=== PATIENT | female | born 1960 | race Caucasian/White ===

== ENCOUNTER 2018-06-16 10:23 | Emergency (ER) | payer OTHER ==
[2018-06-16] MEDS: Aspirin 81 MG Tab.Chew PO ONE (10:50)
--- NOTE | 2018-06-16 10:50 | EDM.PDOC ---
ED HPI GENERAL MEDICAL PROBLEM - General Chief Complaint: Chest Pain Time Seen by Provider: 06/16/18 10:32 Source of Information: Reports: Patient History Limitations: Reports: No Limitations - History of Present Illness INITIAL COMMENTS - FREE TEXT/NARRATIVE: Patient brought from [facility] with chest pain and hypotension. Patient here in ER now is asymptomatic and feeling fine but she tells me that around [id number] this morning she felt hot, sweaty and lightheaded. She went to work and around [id number] she felt heavy in her chest. It lasted about a minute. She waited to get in to the clinic and while she was there she felt the heaviness again for about a minute along with heart racing. She got an EKG at the clinic that showed tachycardia and ST depression. Blood pressure was 82/50 in clinic. BP was improving en route per ambulance. Patient denies any pain in chest, neck, jaw, arms or shoulder currently. IV fluids and aspirin were given on arrival. Patient smokes 1 ppd, has diabetes, high cholesterol and high blood pressure. She tells us that both her mother and sister of massive heart attacks at an early age, sister was in her 40's. - Related Data Allergies Allergy/AdvReac Type Severity Reaction Status Date / Time No Known Allergies Allergy Verified 06/16/18 10:29 Home Meds: Home Meds Liraglutide [Victoza 3-Mikel] 0.6 mg SUBCUT DAILY 06/16/18 [History] Lisinopril [Zestril] 40 mg PO DAILY 06/16/18 [History] Metoprolol Tartrate [Lopressor] 12.5 mg PO BID 06/16/18 [History] atorvaSTATin [Lipitor] 10 mg PO DAILY 06/16/18 [History] metFORMIN [Glucophage] 1,000 mg PO BIDMEALS 06/16/18 [History] ED ROS GENERAL - Review of Systems Review Of Systems: See Below Constitutional: Reports: Malaise. Denies: Fever, Chills, Weakness HEENT: Denies: Ear Pain, Throat Pain, Vision Change Respiratory: Denies: Shortness of Breath, Cough Cardiovascular: Reports: Chest Pain, Blood Pressure Problem, Lightheadedness. Denies: Syncope GI/Abdominal: Denies: Abdominal Pain, Nausea, Vomiting : Reports: No Symptoms Musculoskeletal: Denies: Neck Pain, Shoulder Pain, Arm Pain, Back Pain, Hand Pain, Leg Pain, Foot Pain Skin: Reports: Diaphoresis (resolved now). Denies: Cyanosis, Jaundice, Mottled , Pallor Neurological: Denies: Confusion, Dizziness, Headache, Seizure, Syncope, Difficulty Walking, Weakness, Change in Speech Psychiatric: Denies: Agitation, Anxiety, Confusion ED EXAM, GENERAL - Physical Exam Exam: See Below Exam Limited By: No Limitations General Appearance: Alert, WD/WN, No Apparent Distress Eye Exam: Bilateral Eye: EOMI, Normal Inspection, PERRL Ears: Normal External Exam, Hearing Grossly Normal Nose: Normal Inspection, No Blood Throat/Mouth: Normal Inspection, Normal Lips, Normal Voice, No Airway Compromise Head: Atraumatic, Normocephalic Neck: Normal Inspection, Full Range of Motion Respiratory/Chest: No Respiratory Distress, Lungs Clear, Normal Breath Sounds, No Accessory Muscle Use Cardiovascular: Regular Rate, Rhythm, No Murmur GI/Abdominal: Soft, Non-Tender, No Organomegaly, No Distention Extremities: Normal Inspection, Normal Range of Motion, Non-Tender, Normal Capillary Refill Neurological: Alert, Oriented, Normal Cognition, No Motor/Sensory Deficits Psychiatric: Normal Affect, Normal Mood Skin Exam: Warm, Dry, Intact, Normal Color, No Rash Course - Vital Signs Last Recorded V/S: Last Vital Signs Temp 99.2 F 06/16/18 10:31 Pulse 77 06/16/18 11:26 Resp 17 06/16/18 11:26 BP 122/64 06/16/18 11:26 Pulse Ox 95 06/16/18 11:26 - Orders/Labs/Meds Orders: Active Orders 24 hr Category Date Time Status EKG Documentation Completion [RC] ASDIRECTED Care 06/16/18 10:29 Active Sodium Chloride 0.9% [Saline Flush] Med 06/16/18 14:00 Active 10 ml FLUSH Q8HR Medication Orders Sodium Chloride (Saline Flush) 10 ml FLUSH Q8HR ABI Last Admin: 06/16/18 10:57 Dose: 10 ml Labs: Laboratory Tests 06/16/18 06/16/18 Range/Units 10:40 10:40 WBC 12.92 H (5.00-10.00) 10^3/uL RBC 5.00 (3.80-5.50) 10^6/uL Hgb 15.3 (12.0-16.0) g/dL Hct 45.6 (37.0-47.0) % MCV 91.2 (82.0-92.0) fL MCH 30.6 (27.0-31.0) pg MCHC 33.6 (32.0-36.0) g/dL RDW 12.5 (11.5-14.5) % Plt Count 344 (150-400) 10^3/uL MPV 9.3 (7.4-10.4) fL Immature Gran % (Auto) 0.2 (0.0-5.0) % Neut % (Auto) 71.6 H (50.0-70.0) % Lymph % (Auto) 21.1 (20.0-40.0) % [place] % (Auto) 5.4 (2.0-8.0) % Eos % (Auto) 1.2 (1.0-3.0) % Baso % (Auto) 0.5 (0.0-1.0) % Immature Gran # (Auto) 0.03 (0.00-0.50) 10^3/uL Neut # (Auto) 9.25 H (2.50-7.00) 10^3/uL Lymph # (Auto) 2.72 (1.00-4.00) 10^3/uL [place] # (Auto) 0.70 (0.10-0.80) 10^3/uL Eos # (Auto) 0.16 (0.10-0.30) 10^3/uL Baso # (Auto) 0.06 (0.00-0.10) 10^3/uL Sodium 139 (136-145) mmol/L Potassium 4.2 (3.3-5.3) mmol/L Chloride 100 (98-115) mmol/L Carbon Dioxide 24.1 (21.0-32.0) mmol/L Anion Gap 19.1 H (5-15) mmol/L BUN 11 (6-25) mg/dL Creatinine 0.61 (0.51-1.17) mg/dL Est Cr Clr Drug Dosing 81.45 mL/min Estimated GFR (MDRD) > 60 mL/min Glucose 166 H (75 - 99) mg/dL Calcium 9.4 (8.7-10.3) mg/dL Troponin I 0.13 H* (0.00-0.070) ng/mL Meds: Medications Generic Name Dose Route Start Last Admin Trade Name Kitty PRN Reason Stop Dose Admin Sodium Chloride 10 ml 06/16/18 14:00 06/16/18 10:57 Saline Flush FLUSH 10 ml Q8HR ABI Administration Discontinued Medications Generic Name Dose Route Start Last Admin Trade Name Kitty PRN Reason Stop Dose Admin Aspirin 324 mg 06/16/18 10:40 06/16/18 10:50 Aspirin PO 06/16/18 10:41 324 mg ONETIME ONE Administration Sodium Chloride 1,000 mls @ 999 mls/hr 06/16/18 10:30 06/16/18 10:57 Normal Saline IV 06/16/18 11:30 999 mls/hr .BOLUS ONE Administration - Re-Assessments/Exams Free Text/Narrative Re-Assessment/Exam: 06/16/18 11:25 I discussed my concerns with patient without waiting for labs as I want to get her to [facility]. She is okay with me talking to applications administrator there. I discussed case with Dr. Hull and Dr. Jimenez (hospitalist) who accepted for transfer. Since she is asymptomatic right now they don't want anything more than the fluids and aspirin at this time. 06/16/18 11:34 EMS is loading her up now for transport. Patient has remained asymptomatic throughout ER course with stable HR and BP. One liter of fluids are nearly completed. Departure - Departure Time of Disposition: 11:36 Disposition: DC/Tfer to Acute Hospital 02 Reason for Transfer *Q: Other (cardiac room with cath to be determined) Condition: Good Clinical Impression: Elevated troponin Chest pain Qualifiers: Chest pain type: chest pain due to myocardial ischemia Ischemic chest pain type : unstable angina pectoris Qualified Code(s): I20.0 - Unstable angina Referrals: PCP,None [Primary Care Provider] - Forms: ED Department Discharge - My Orders Last 24 Hours: My Active Orders 06/16/18 10:29 EKG Documentation Completion [RC] ASDIRECTED 06/16/18 14:00 Sodium Chloride 0.9% [Saline Flush] 10 ml FLUSH Q8HR - Assessment/Plan Last 24 Hours: My Active Orders 06/16/18 10:29 EKG Documentation Completion [RC] ASDIRECTED 06/16/18 14:00 Sodium Chloride 0.9% [Saline Flush] 10 ml FLUSH Q8HR
[2018-06-16] MEDS: Sodium Chloride 0.9% 10 ML Syringe FLUSH SCH (10:57)
[2018-06-16] MEDS: Sodium Chloride 0.9% 1,000 ML IV ONE (10:57)
[2018-06-16 11:15] LABS: ANION GAP 19.1 mmol/L (5-15); CHLORIDE,CL 100 mmol/L (98-115); SODIUM,NA 139 mmol/L (136-145)
== END 2018-06-16 11:34 ==
LOC: KA.ED 10:23
DX: I20.0 Unstable angina (principal); R79.89 Other specified abnormal findings of blood chemistry; E78.00 Pure hypercholesterolemia, unspecified; F17.210 Nicotine dependence, cigarettes, uncomplicated; E11.9 Type 2 diabetes mellitus without complications; Z79.899 Other long term (current) drug therapy; Z79.84 Long term (current) use of oral hypoglycemic drugs
CPT/HCPCS: 36415; 80048; 84484; 85025; 93005; 96360; 99285; A9270-GY; J7030

== ENCOUNTER 2024-10-26 20:20 | Emergency (ER) | payer BC, OTHER ==
[2024-10-26] MEDS: EPINEPHrine 1:10,000 1 MG/10 ML Syringe IVPUSH ONE ×3 (20:36→20:43)
[2024-10-26] MEDS: Sodium Bicarbonate 8.4% 50 MEQ/50 ML Syringe IVPUSH ONE ×2 (20:38→20:42)
[2024-10-26] MEDS: Calcium Chloride 10% 1 GM/10 ML Syringe IVPUSH ONE (20:38)
== END 2024-10-26 20:45 | disposition expired ==
LOC: KA.ED 20:32
DX: I46.9 Cardiac arrest, cause unspecified (principal); E78.00 Pure hypercholesterolemia, unspecified; I10 Essential (primary) hypertension; E11.9 Type 2 diabetes mellitus without complications; Z79.899 Other long term (current) drug therapy; Z79.84 Long term (current) use of oral hypoglycemic drugs; Z90.49 Acquired absence of other specified parts of digestive tract
CPT/HCPCS: 92950; 96374; 96375; 99285-25; J0171; J3490; Q3014